=== PATIENT | male | born 1950 | race Caucasian/White ===

== ENCOUNTER 2018-06-14 19:14 | Emergency (ER) | payer MEDICAID, MEDICARE ==
[~2018-06-14] VITALS: Ht 180.3 cm; Wt 8.6 kg
[~2018-06-14 19:14] MED LIST: METH4TAB3 PO; PROC-8 PO; [UNRECOGNIZED DRUG - CODE] PO
--- NOTE | 2018-06-14 19:34 | NUR ---
patient performed vagal maneuver with straw patient converted to sinus tch repeat ekg ordered
[2018-06-14] MEDS ORDERED: magnesium 2GM in 50ml NS 50 ML IV ONE (19:40)
[2018-06-14] MEDS ORDERED: normal saline 1000ML IV soln IVB ONE (19:40)
[2018-06-14 20:17] LABS: ALANINE AMINOTRANSFERASE 22 U/L (12-78); ALBUMIN 4.6 G/DL (3.4-5.0); ALBUMIN/GLOBULIN RATIO 1.5 (1.1-1.5); ALKALINE PHOSPHATASE 52 IU/L (46-116); ANION GAP 12 (8-16); ASPARTATE AMINO TRANSFERASE 16 U/L (10-37); BILIRUBIN,TOTAL 0.8 MG/DL (0.1-1.0); BLOOD UREA NITROGEN 22 MG/DL (7-18); BUN/CREATININE RATIO 16.4 (5.4-32.0); CALCIUM 9.6 MG/DL (8.5-10.1); CHLORIDE 102 MMOL/L (99-107); CREATININE 1.34 MG/DL (0.60-1.10); GLUCOSE 94 MG/DL (70-104); MAGNESIUM 2.1 MG/DL (1.5-2.4); POTASSIUM 3.8 MMOL/L (3.5-5.1); SODIUM 139 MMOL/L (135-145); TOTAL CARBON DIOXIDE 25.3 MMOL/L (24-32); TOTAL PROTEIN 7.7 G/DL (6.4-8.2); eGFR 53 ML/MIN
[2018-06-14 20:21] LABS: BASOPHILS % (AUTO) 0.5 % (0-1); EOSINOPHILS # (AUTO) 0.3 X10'3 (0-0.9); LYMPHOCYTES # (AUTO) 3.1 X10'3 (1.1-4.8); LYMPHOCYTES % (AUTO) 39.1 % (21-51); MEAN CORPUSCULAR HEMOGLOBIN 31.9 PG (27.0-31.0); MEAN CORPUSCULAR HGB CONC 34.6 g/dL (33.0-36.5); MEAN CORPUSCULAR VOLUME 92.1 FL (78-98); MEAN PLATELET VOLUME 9.6 FL (7.4-10.4); MONOCYTES # (AUTO) 0.6 X10'3 (0-0.9); MONOCYTES % (AUTO) 6.9 % (2-12); NEUTROPHILS % (AUTO) 49.5 % (42-75); PLATELET COUNT 141 X10'3 (140-440); RED BLOOD COUNT 5.87 X10'6 (4.70-6.10); RED CELL DISTRIBUTION WIDTH 13.5 % (11.5-14.5); WHITE BLOOD COUNT 8.1 X10'3 (4.5-11.0)
[2018-06-14 20:24] LABS: HEMOGLOBIN 18.7 g/dl (14.0-17.9)
[2018-06-14 20:55] VITALS: BP 146/93
== END 2018-06-14 20:55 | disposition home or self-care (01) ==
LOC: ER 19:14
DX: I47.1 Supraventricular tachycardia (principal); D75.1 Secondary polycythemia; I10 Essential (primary) hypertension; Z79.82 Long term (current) use of aspirin
CPT/HCPCS: 36415; 80053; 83735; 85025; 93005; 96365; 99284; J3475; J7030; 96366